=== PATIENT | female | born 1980 | race Caucasian/White ===

== ENCOUNTER 2017-05-03 10:30 | Inpatient (IN) | payer BC ==
[2017-05-10] MEDS ORDERED: ceFAZolin SODIUM/DEXTROSE,ISO 2 GM/50 ML BAG IV ONE (05:07)
[2017-05-10] MEDS ORDERED: RINGER'S SOLUTION,LACTATED 1,000 ML IV PRN ×2 (05:07)
[2017-05-10] MEDS ORDERED: OXYTOCIN 20 UNITS in RINGER'S SOLUTION,LACTATED 1,000 ML IV ONE (05:07)
[2017-05-10 05:22] LABS: Hematocrit 36.2 % (37.0-47.0); Hemoglobin 12.9 gm/dL (12.5-16.0); Mean Corpuscular Hgb Conc 35.6 g/dl (32-36); Neutrophil # 12.8 K/mm3 (1.3-6.0); Neutrophil % 74.1 % (42-75.0); Platelet Count 222 K/mm3 (150-450); Red Blood Count 4.16 M/mm3 (4.2-5.4); Red Cell Distribution Width 13.6 % (11.5-14.0); White Blood Count 17.2 K/mm3 (4.0-10.5)
[2017-05-10 05:38] LABS: Albumin * 2.7 gm/dl (3.4-5.0); BUN/Creatinine Ratio 13.2 (9.0-21.6); Bilirubin, Total 0.6 mg/dL (0.0-1.1); Ca. Corrected For Albumin 9.6 mg/dL (8.4-10.2); Calcium * 8.9 mg/dL (7.9-10.9); Carbon Dioxide 22.8 mmol/L (24-32.6); Potassium 3.8 mmol/L (3.4-4.6); Total Protein 6.4 gm/dL (6.2-8.2)
[2017-05-10] MEDS ORDERED: RINGER'S SOLUTION,LACTATED 1,000 ML IV ONE (07:50)
[2017-05-10] MEDS ORDERED: DEXTROSE 5%-0.5 NORMAL SALINE 1,000 ML IV ONE (09:30)
[2017-05-10] MEDS ORDERED: SENNOSIDES 8.6 MG TABLET PO PRN (09:32)
[2017-05-10] MEDS ORDERED: SIMETHICONE 80 MG TAB.CHEW PO PRN (09:32)
[2017-05-10] MEDS ORDERED: ONDANSETRON HCL/PF 2 MG/ML VIAL IV PRN (09:32)
[2017-05-10] MEDS ORDERED: BISACODYL 10 MG SUPP.RECT RC PRN (09:32)
--- NOTE | 2017-05-10 09:43 | OR ---
Operative Report - Dictated Report Narrative: Indication: 36-year-old 2 para 1 with prior section, gestational hypertension, type 2 diabetes on insulin, desires repeat section with bilateral salpingectomy for sterilization. status: Planned Pre Operative Diagnosis: 39 week intrauterine , prior section , gestational hypertension, type 2 diabetes on insulin, advanced maternal age, desires sterilization via bilateral salpingectomy Post Operative Diagnosis: Same. Procedure: Repeat low transverse section. Bilateral salpingectomy Surgeon: Alisia Coffey DO Category Development Manager: OR Staff Anesthesia: Spinal, TAP block Estimated Blood Loss: 200 mL Urine Output: 150 mL clear urine Fluids Replacement: 1600 mL of crystalloid Drains: Alonzo to gravity Surgical Complications: None Specimens: Placenta to pathology, bilateral fallopian tubes Findings: Female born at 0827 on 05/10/2018 in cephalic presentation with Apgars 7 and 8, weighing 3190 g. Normal uterus, tubes, ovaries. Dense scar tissue on the Anya's fascia, abdominal muscle fascia, and omentum to anterior peritoneal wall. Technique: The patient was taken to the operating room and placed in dorsal supine position with a left lateral tilt. After adequate spinal anesthesia, alonzo catheter inserted, SCDs placed, and 2 g of Ancef given preoperatively, the abdominal cavity was entered using sharp and blunt dissection. Two rolled laps were placed in the pericolic gutters on either side of the uterus. A transverse incision was made in the lower uterine segment and extended laterally and upwardly with digital traction. Clear fluid was noted upon amniotomy. A Kiwi Palm pump suction was applied to the vertex to assist with delivery. One easy pull with maximum vacuum pressure of 500 mmHg. The cord was clamped and cut and was handed off to awaiting orange peel operator. The placenta was allowed to deliver spontaneously. The uterus was cleared of clot and debris. Uterine incision was closed with 0 Vicryl using a running stitch. A second imbricating layer was placed. A [id number] stitch was placed in the left side of the incision to provide excellent hemostasis. The right fallopian tube was identified and followed out to the fimbriated end. Using Kleppinger's and cautery, the mesosalpinx was coagulated and transected removing the tube approximately 3 cm from the cornual region. The exact same was done on the patient's left side. The rolled laps were removed from the abdominal cavitiy. The peritoneum was closed with a running 3-0 Monocryl. The same suture was used to approximate the rectus and pyramidalis muscles. The fascia was closed with a running 0 Vicryl. The subcutaneous layer was closed with a running 3-0 Monocryl. The same suture was used to approximate the subdermal layer. The skin was closed with a running 4-0 Monocryl and Dermabond. Sponge, lap, needle, and instrument count were correct x 2. Disposition: To post anesthesia care unit in good condition History for MU Definition: * The number of deliveries resulting in a live the patient experienced prior to current hospitalization * The previous delivery of live twins or any live multiple gestation is considered one live event. *If primagravida or nulliparous is documented select zero for the number of previous live births. Live Events: 1
--- NOTE | 2017-05-10 10:00 | OR ---
Anesthesia Procedure Note - Anesthesia Procedure Note Date of Service: 05/10/17 Narrative: Vital Signs - Last Taken Temp 36.5 C 05/10/17 09:30 Pulse 89 05/10/17 09:30 Resp 13 05/10/17 09:30 BP 109/67 05/10/17 09:30 Pulse Ox 97 05/10/17 09:30 O2 Oxygen Delivery Method Room Air 05/10/17 09:59 ANESTHESIA PROCEDURE NOTE Date of Procedure: 05/10/2017 Time of procedure: 9:40 AM. Performed by: EZ Joshi CRNA, MSN Preprocedure diagnosis: Post section pain. Post procedure diagnosis: Same. Procedure: Bilateral TAP block Indications: Post section pain relief. Findings: See below. Details of the procedure: The patient was brought to PACU and placed in the supine position. The patient was prepped with chlorhexidine and using ultrasound guidance the 3 abdominal muscular planes were identified and lidocaine 1% was infiltrated to the skin of the intended injection site. Under ultrasound guidance the the internal oblique and transverse this abdominis muscle layers were approached with visualization of a 4 inch block needle until the tip of the needle rested in the plane between the muscles. 25 mL bupivacaine 0.5% with 1-200,000 epinephrine was injected and the procedure was repeated on the other side. Please see radiology/ultrasound report for details and images of the procedure. EBL: 0 Fluids: N/A. Specimen: N/A. Post procedure condition: The patient tolerated the procedure well. No complications were noted. Thank you for this consultation. Dima Okeefe CRNA, STOCK CUTTER, MSN
[2017-05-10] MEDS: oxyCODONE HCL/ACETAMINOPHEN 1 TAB TABLET PO PRN ×4 (10:35→20:42)
[2017-05-10] MEDS: IBUPROFEN 800 MG TABLET PO PRN ×2 (10:35→17:40)
[2017-05-10] MEDS: ENOXAPARIN SODIUM 40 MG/0.4 ML SYRG SC SCH (18:22)
[2017-05-10] MEDS: DOCUSATE SODIUM 100 MG CAPSULE PO SCH (20:42)
[2017-05-11] MEDS: IBUPROFEN 800 MG TABLET PO PRN ×4 (00:19→23:10)
[2017-05-11] MEDS: oxyCODONE HCL/ACETAMINOPHEN 1 TAB TABLET PO PRN ×7 (00:47→23:10)
[2017-05-11] MEDS: DOCUSATE SODIUM 100 MG CAPSULE PO SCH ×2 (09:06→20:13)
[2017-05-11] MEDS: PRENATAL VITS96/IRON FUM/FOLIC 1 TAB TABLET PO SCH (09:07)
[2017-05-11] MEDS: CHOLECALCIFEROL 1,000 UNIT CAPSULE PO SCH (09:07)
[2017-05-11] MEDS: ACIDOPH PARACASEI B LACTIS PO SCH (09:08)
[2017-05-11] MEDS ORDERED: RHO(D) IMMUNE GLOBULIN 300 MCG DISP.SYRIN IM ONE (10:30)
--- NOTE | 2017-05-11 12:11 | PN ---
Subjective - Date and Time Seen Date: 05/11/17 Time: 12:10 Objective - Vitals Vitals: Last Vital Signs Temp 36.8 C 05/11/17 12:03 Pulse 90 05/11/17 12:03 Resp 18 05/11/17 12:03 BP 126/75 05/11/17 12:03 Pulse Ox 97 05/11/17 12:03 Patient denies complaints. Tolerating regular diet. Ambulating without difficulty. Pain well controlled. Lochia wnl. Abdomen - soft, appropriately tender Incision - clean, dry, intact Uterus - firm, at umbilicus -1 No calf tenderness Impression: Post op day #1 s/p repeat section. Diabetes-stable. Gestational hypertension-resolved. Morbid obesity Plan: Continue routine post-operative/ care Cauti Physician Documentation - Urinary Catheter Management Urethral (Lewis) Date of Insertion: 05/10/17 Time of Insertion: 08:05 Date of Removal: 05/10/17 Time of Removal: 20:45
[2017-05-11] MEDS: ENOXAPARIN SODIUM 40 MG/0.4 ML SYRG SC SCH (17:19)
[2017-05-12] MEDS: oxyCODONE HCL/ACETAMINOPHEN 1 TAB TABLET PO PRN ×5 (05:52→21:24)
[2017-05-12] MEDS: IBUPROFEN 800 MG TABLET PO PRN ×2 (05:52→14:27)
[2017-05-12] MEDS: DOCUSATE SODIUM 100 MG CAPSULE PO SCH ×2 (08:48→21:24)
[2017-05-12] MEDS: PRENATAL VITS96/IRON FUM/FOLIC 1 TAB TABLET PO SCH (08:48)
[2017-05-12] MEDS: CHOLECALCIFEROL 1,000 UNIT CAPSULE PO SCH (08:49)
[2017-05-12] MEDS: ACIDOPH PARACASEI B LACTIS PO SCH (08:49)
--- NOTE | 2017-05-12 08:57 | PN ---
Subjective - Date and Time Seen Date: 05/12/17 Time: 08:53 Objective - Vitals Vitals: Last Vital Signs Temp 36.7 C 05/12/17 06:55 Pulse 78 05/12/17 06:55 Resp 18 05/12/17 06:55 BP 124/75 05/12/17 06:55 Pulse Ox 100 05/12/17 06:55 Patient denies complaints. Ambulating well. Tolerating regular diet. Pain well controlled. Lochia wnl. Abdomen - soft, appropriately tender Incision - clean, dry, intact Uterus - firm, at umbilicus -2 No calf tenderness Impression: Post op day #2 s/p repeat section. Gestational hypertension-stable. Diabetes, type 2-stable. Morbid obesity. Plan: Continue routine post-operative/ care Cauti Physician Documentation - Urinary Catheter Management Urethral (Lewis) Date of Insertion: 05/10/17 Time of Insertion: 08:05 Date of Removal: 05/10/17 Time of Removal: 20:45
[2017-05-12] MEDS: ENOXAPARIN SODIUM 40 MG/0.4 ML SYRG SC SCH (18:00)
--- NOTE | 2017-05-13 06:46 | PN ---
Subjective - Date and Time Seen Date: 05/13/17 Time: 06:44 Objective - Vitals Vitals: Last Vital Signs Temp 36.6 C 05/13/17 02:14 Pulse 71 05/13/17 02:14 Resp 16 05/13/17 02:14 BP 132/80 05/13/17 02:14 Pulse Ox 96 05/13/17 02:14 Patient denies complaints. Ambulating without difficulty. Tolerating regular diet. Pain well controlled. Lochia wnl. Abdomen - soft, appropriately tender Incision - clean, dry, intact Uterus - firm, at umbilicus -3 No calf tenderness Impression: Post op day #3 s/p repeat section. Bilateral salpingectomy. Gestational hypertension-resolved. Type 2 diabetes-stable. Morbid obesity. Plan: Routine discharge instructions. Follow-up in office in 2 weeks. Preeclampsia precautions. Continue metformin 1000 mg twice a day. Check blood sugars 2-3 times per week for the next 2 weeks. Cauti Physician Documentation - Urinary Catheter Management Urethral (Lewis) Date of Insertion: 05/10/17 Time of Insertion: 08:05 Date of Removal: 05/10/17 Time of Removal: 20:45
[2017-05-13] MEDS: oxyCODONE HCL/ACETAMINOPHEN 1 TAB TABLET PO PRN ×2 (07:51→11:41)
[2017-05-13] MEDS: ACIDOPH PARACASEI B LACTIS PO SCH (09:00)
[2017-05-13] MEDS: CHOLECALCIFEROL 1,000 UNIT CAPSULE PO SCH (09:10)
[2017-05-13] MEDS: DOCUSATE SODIUM 100 MG CAPSULE PO SCH (09:11)
[2017-05-13] MEDS: PRENATAL VITS96/IRON FUM/FOLIC 1 TAB TABLET PO SCH (09:11)
[2017-05-13 13:32] VITALS: BP 132/70
== END 2017-05-13 11:55 | disposition home or self-care (01) | DRG 765 ==
LOC: OB 05-10 04:55 → MS 05-11 20:32
PROVIDERS: ADMIT Obstetrics & Gynecology; ATTEND Obstetrics & Gynecology
PROC: 10D00Z1 Extraction of Products of Conception, Low, Open Approach (ICD-10-PCS; principal; 2017-05-10)
PROC: 0UB70ZZ Excision of Bilateral Fallopian Tubes, Open Approach (ICD-10-PCS; 2017-05-10)
PROC: 4A1HXCZ Monitoring of Products of Conception, Cardiac Rate, External Approach (ICD-10-PCS; 2017-05-10)
DX: O34.211 Maternal care for low transverse scar from previous cesarean delivery (principal); O98.32 Other infections with a predominantly sexual mode of transmission complicating childbirth; O99.334 Smoking (tobacco) complicating childbirth; O99.344 Other mental disorders complicating childbirth; O24.425 Gestational diabetes mellitus in childbirth, controlled by oral hypoglycemic drugs; O13.4 Gestational [pregnancy-induced] hypertension without significant proteinuria, complicating childbirth; O24.424 Gestational diabetes mellitus in childbirth, insulin controlled; F41.9 Anxiety disorder, unspecified; A60.04 Herpesviral vulvovaginitis; Z3A.39 39 weeks gestation of pregnancy; Z37.0 Single live birth; Z79.899 Other long term (current) drug therapy; Z30.2 Encounter for sterilization
CPT/HCPCS: 36415; 58611; 59025; 59510; 80053; 85025; 85460; 88302; 88307; J2790